=== PATIENT | male | born 1990 | race Caucasian/White ===

== ENCOUNTER 2024-09-02 12:08 | Emergency (ER) | payer SELFPAY ==
[~2024-09-02 12:08] MED LIST: Iopamidol 300 61% 100 ML VIAL FS ONE
[2024-09-02 12:54] LABS: #Basophils 0.09 10x3/uL (0.0-0.2); #Eosinophils Less than 0.03 10x3/uL (0.0-0.5); #Monocytes 0.72 10x3/uL (0.0-1.1); #Neutrophils 3.27 10x3/uL (1.5-8.4); %Basophils 1.6 % (0.0-2.0); %Eosinophils 0.4 % (0.0-6.0); %Lymphocytes 24.3 % (18.0-47.0); %Monocytes 13.2 % (0.0-10.0); %Neutrophils 59.8 % (40.0-75.0); Hematocrit 34.7 % (38.8-50.0); Hemoglobin 11.7 g/dL (13.5-17.5); Mean Corpuscular Hemoglobin 33.8 pg (27.0-33.0); Mean Corpuscular Volume 100.3 fL (81.2-95.1); Platelet Count 220 10x3/uL (150-450); Red Blood Cell (RBC) Count 3.46 10x6/uL (4.32-5.72); White Blood Cell (WBC) Count 5.47 10x3/uL (3.5-10.5)
[2024-09-02 13:31] LABS: Glucose, Urine (Dipstick) Normal (Negative); Leukocyte 25 (Negative); Protein, Urine (Dipstick) 30 mg/dl (Neg-Trace); Specific Gravity, Urine 1.020 (1.005-1.030)
[2024-09-02 13:49] LABS: Bacteria/HPF 1+ HPF (None Seen); CAUTI Indications for Culture Pelvic or flank pain; RBC/HPF 0-3 HPF (0-3)
[2024-09-02 13:50] LABS: Urine Culture Reflex No No
[2024-09-02 13:51] LABS: Troponin I Less than 0.010 ng/mL (< 0.028)
[2024-09-02 13:52] LABS: ALT (SGPT) 169 U/L (Less than 45); AST (SGOT) 202 U/L (11-34); Albumin 3.3 g/dL (3.1-4.5); Alkaline Phosphatase 367 U/L (40-110); Anion Gap 16 mmol/L (10-20); BUN (Urea Nitrogen) 8 mg/dL (8.9-20.6); Bilirubin, Total 5.1 mg/dL (0.3-1.2); Calc. Creatinine Clearance 0 mL/min (70-130); Calcium 8.8 mg/dL (7.8-10.44); Carbon Dioxide 21 mmol/L (22-29); Chloride 100 mmol/L (98-107); Globulin 3.9 g/dL (2.4-3.5); Glucose 86 mg/dL (70-105); Lipase 19 U/L (8-78); Potassium 4.0 mmol/L (3.5-5.1); Sodium 133 mmol/L (136-145)
[2024-09-02 14:16] LABS: INR-International Normal Ratio 1.0; PTT 27.6 sec (22.0-33.0); Prothrombin Time 10.7 sec (9.5-12.1)
[2024-09-02 14:18] LABS: Acetaminophen Less than 10 mcg/mL (Less than 10)
[2024-09-02] MEDS ORDERED: cefTRIAXone (ROCEPHIN) 1 GM VIAL ONE (14:25)
[2024-09-02 16:56] LABS: Hep B Surf Ag Non-Reactive S/CO (NonReactive)
[2024-09-02 17:50] LABS: Iron 46 ug/dL (65-175); Iron Binding Capacity, Total 209 mcg/dL (261-462)
[2024-09-02 20:22] LABS: Hep A IgM AB NONREACTIVE (NonReactive); Hep A IgM S/CO 0.21 S/CO (0-0.79); Hep B Core IgM Index 0.11 S/CO (0-0.79); Hep C IgG Ab NONREACTIVE S/CO (NonReactive); Hep C Index 0.08 S/CO (0-0.79)
[2024-09-04 11:39] LABS: dsDNA IgG Antibody Less than 0.6 IU/mL (<10 Negative)
[2024-09-04 11:46] LABS: ANA Symphony (Qualitative) Negative (Negative); ANA Symphony (Quantitative) Less than 0.1 Ratio (< 0.7 Negative)
== END 2024-09-02 15:21 | disposition home or self-care (01) ==
LOC: CSHERS 12:08
DX: R74.01 Elevation of levels of liver transaminase levels (principal); N39.0 Urinary tract infection, site not specified
CPT/HCPCS: 36415; 74177; 76705; 80053; 80074; 80143; 81001; 82390; 82728; 83540; 83550; 83690; 84484; 85025; 85610; 85730; 86015; 86038; 86225; 93005; 96374; 80307; J0696; Q9967